=== PATIENT | female | born 1965 | race Caucasian/White ===

== ENCOUNTER 2016-12-21 19:56 | Emergency (ER) | payer SELFPAY ==
[2016-12-21 20:03] VITALS: BP 160/89
--- NOTE | 2016-12-21 20:08 | ER Document Report ---
ED Medical Screen (RME) - General Stated Complaint: POSSIBLE SINUS INFECTION Mode of Arrival: Ambulatory Information source: Patient Notes: Patient complains of sinus congestion for the past week. Patient reports sinus tenderness. Patient reports temperature of 101 at home. hx: Sciatica I have greeted and performed a rapid initial assessment of this patient. A comprehensive ED assessment and evaluation of the patient, analysis of test results and completion of the medical decision making process will be conducted by additional ED providers. - Related Data Allergies/Adverse Reactions: aspirin [Aspirin] Allergy (Intermediate, Verified 04/27/14 16:11) Hives erythromycin base [Erythromycin Base] Allergy (Unknown, Verified 05/03/13 01:08) Penicillins Allergy (Unknown, Verified 05/03/13 01:08) Past Medical History - Past Medical History Cardiac Medical History: Reports: Hx Hypertension - no meds Past Surgical History: Reports: Hx Adenoidectomy, Hx Appendectomy, Hx Breast Surgery, Hx Cardiac Surgery, Hx Section, Hx Gynecologic Surgery, Hx Hysterectomy - Immunizations Immunizations up to date: Yes Hx Diphtheria, Pertussis, Tetanus Vaccination: Yes Physical Exam - Vital signs Vitals: Temp Pulse Resp BP Pulse Ox 98.3 F 110 H 18 160/89 H 97 12/21/16 20:02 12/21/16 20:02 12/21/16 20:02 12/21/16 20:02 12/21/16 20:02 - General Notes: Patient with maxillary sinus tenderness Course - Vital Signs Vital signs: Temp Pulse Resp BP Pulse Ox 98.3 F 110 H 18 160/89 H 97 12/21/16 20:02 12/21/16 20:02 12/21/16 20:02 12/21/16 20:02 12/21/16 20:02
== END 2016-12-21 21:00 | disposition left against medical advice (07) ==
LOC: ER 19:56
DX: R09.81 Nasal congestion (principal); R50.9 Fever, unspecified; I10 Essential (primary) hypertension; Z88.6 Allergy status to analgesic agent; Z88.3 Allergy status to other anti-infective agents; Z88.0 Allergy status to penicillin; Z90.710 Acquired absence of both cervix and uterus
CPT/HCPCS: 99281

== ENCOUNTER 2020-05-02 23:18 | Emergency (ER) | payer SELFPAY ==
[2020-05-03] LABS: HEMOGLOBIN 14.7 g/dL (12.0-15.5); MEAN CORPUSCULAR HEMOGLOBIN 32.8 pg (27.0-33.4); MEAN CORPUSCULAR HGB CONC 33.4 g/dL (32.0-36.0); MEAN CORPUSCULAR VOLUME 98 fl (80-97); PLATELET COUNT 351 10^3/uL (150-450); RED BLOOD COUNT 4.47 10^6/uL (3.72-5.28); WHITE BLOOD COUNT 23.1 10^3/uL (4.0-10.5)
[2020-05-03 00:08] LABS: ALBUMIN 4.2 g/dL (3.5-5.0); ALKALINE PHOSPHATASE 79 U/L (38-126); ANION GAP 7 (5-19); ASPARTATE AMINO TRANSFERASE 30 U/L (14-36); BILIRUBIN,TOTAL 0.8 mg/dL (0.2-1.3); BLOOD UREA NITROGEN 7 mg/dL (7-20); CALCIUM 9.6 mg/dL (8.4-10.2); CARBON DIOXIDE 24 mmol/L (22-30); CHLORIDE 107 mmol/L (98-107); GLUCOSE 190 mg/dL (75-110); POTASSIUM 3.5 mmol/L (3.6-5.0); TOTAL PROTEIN 7.1 g/dL (6.3-8.2)
[2020-05-03 00:09] LABS: ACETAMINOPHEN < 10 ug/mL (10-30); ALCOHOL < 10 mg/dL (NONE DETECTED); SALICYLATE < 1.0 mg/dL (2.0-20.0)
[2020-05-03 00:16] LABS: ABSOLUTE LYMPHOCYTES# (MANUAL) 1.4 10^3/uL (0.5-4.7); ABSOLUTE MONOCYTES # (MANUAL) 1.8 10^3/uL (0.1-1.4); BAND NEUTROPHILS % (MANUAL) 3 % (3-5); BASOPHILS % (MANUAL) 0 % (0-2); EOSINOPHILS % (MANUAL) 0 % (0-6); LYMPHOCYTES % (MANUAL) 6 % (13-45); MONOCYTES % (MANUAL) 8 % (3-13); SEGMENTED NEUTROPHILS % (MAN) 83 % (42-78); TOTAL CELLS COUNTED 100
[2020-05-03 00:17] LABS: PLATELET COMMENT ADEQUATE; RBC MORPHOLOGY COMMENT NORMO-CYTIC/CHROMIC
[2020-05-03] MEDS ORDERED: ONDANSETRON HCL INJ/PF 4 MG/2 ML SDV IV ONE (00:49)
[2020-05-03] MEDS ORDERED: NORMAL SALINE 1000 ML 1,000 ML IV ONE (00:49)
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
[2020-05-03 02:38] LABS: APPEARANCE,URINE SLIGHTLY-CLOUDY; BILIRUBIN,URINE NEGATIVE (NEGATIVE); COLOR,URINE YELLOW; GLUCOSE, URINE 50 mg/dL (NEGATIVE); KETONES,URINE NEGATIVE (NEGATIVE); LEUKOCYTE ESTERASE,URINE NEGATIVE (NEGATIVE); NITRITE,URINE NEGATIVE (NEGATIVE); PROTEIN,URINE 100 mg/dL (NEGATIVE); URINE SPECIFIC GRAVITY 1.009; UROBILINOGEN,URINE NEGATIVE mg/dL (<2.0)
--- NOTE | 2020-05-03 02:49 | RADIOLOGY REPORT (SQ) ---
EXAM DESCRIPTION: XR CHEST 1 VIEW COMPLETED DATE/TME: 05/03/2020 02:14 CLINICAL HISTORY: 54 years Female, overdosed, apnea episode, leukocytosis COMPARISON: None. NUMBER OF VIEWS/TECHNIQUE: 1/AP FINDINGS: Increased lung volume, clear parenchyma, normal cardiac silhouette, and intact bony thorax. IMPRESSION: No acute cardiopulmonary findings.
[2020-05-03 03:04] LABS: URINE AMPHETAMINES SCREEN NEGATIVE; URINE BARBITURATES SCREEN NEGATIVE; URINE BENZODIAZEPINES SCREEN NEGATIVE; URINE COCAINE SCREEN NEGATIVE; URINE METHADONE SCREEN NEGATIVE; URINE PHENCYCLIDINE SCREEN NEGATIVE
[2020-05-03 03:06] LABS: URINE MARIJUANA (THC) SCREEN UNCONFIRMED POSITIVE
[2020-05-03] MEDS ORDERED: NICOTINE 14 MG/24 HR PATCH.TD24 TD ONE (04:26)
[2020-05-03] MEDS ORDERED: KETOROLAC TROMETHAMINE INJ/PF 30 MG/1 ML SDV IV ONE (04:26)
[2020-05-03 04:38] VITALS: BP 119/64
--- NOTE | 2020-05-03 11:36 | EKG REPORT ---
SEVERITY:- ABNORMAL ECG - SINUS RHYTHM BIATRIAL ABNORMALITIES PROBABLE LEFT VENTRICULAR HYPERTROPHY : Confirmed by: Doug Tong MD 03-May-2020 11:36:23
== END 2020-05-03 04:58 | disposition other institution (70) ==
LOC: ER 23:18
DX: T50.991A Poisoning by other drugs, medicaments and biological substances, accidental (unintentional), initial encounter (principal); F11.20 Opioid dependence, uncomplicated; M54.9 Dorsalgia, unspecified; G89.29 Other chronic pain; F12.10 Cannabis abuse, uncomplicated; D72.829 Elevated white blood cell count, unspecified; R53.83 Other fatigue; Z88.0 Allergy status to penicillin; Z88.1 Allergy status to other antibiotic agents; Z88.8 Allergy status to other drugs, medicaments and biological substances; F17.200 Nicotine dependence, unspecified, uncomplicated; I10 Essential (primary) hypertension; Z79.899 Other long term (current) drug therapy
CPT/HCPCS: 93005; 99284; 96361; 96374; 96375; 36415; 80307 ×4; 85025; 80053; 81001; 71045; 93010; J1885; J2405; J7030

== ENCOUNTER → 2020-07-29 | Outpatient (CLI) | payer OTHER ==
[2020-07-29 13:14] LABS: ABSOLUTE BASOPHILS # (AUTO) 0.1 10^3/uL (0.0-0.2); ABSOLUTE EOSINOPHILS # (AUTO) 0.1 10^3/uL (0.0-0.6); ABSOLUTE LYMPHOCYTES (AUTO) 2.7 10^3/uL (0.5-4.7); ABSOLUTE MONOCYTES (AUTO) 0.7 10^3/uL (0.1-1.4); ABSOLUTE NEUT (AUTO) 5.4 10^3/uL (1.7-8.2); BASOPHILS % (AUTO) 1.1 % (0-2); EOSINOPHILS % (AUTO) 0.6 % (0-6); HEMATOCRIT 40.8 % (36.0-47.0); HEMOGLOBIN 14.3 g/dL (12.0-15.5); LYMPHOCYTES % (AUTO) 30.2 % (13-45); MEAN CORPUSCULAR HEMOGLOBIN 33.5 pg (27.0-33.4); MEAN CORPUSCULAR HGB CONC 35.1 g/dL (32.0-36.0); MEAN CORPUSCULAR VOLUME 96 fl (80-97); MONOCYTES % (AUTO) 8.3 % (3-13); PLATELET COUNT 322 10^3/uL (150-450); RED BLOOD COUNT 4.28 10^6/uL (3.72-5.28); RED CELL DISTRIBUTION WIDTH 13.7 % (11.5-14.0); SEGMENTED NEUTROPHILS % (AUTO) 59.8 % (42-78); TOTAL CELLS COUNTED % (AUTO) 100 %
[2020-07-29 13:20] LABS: ALBUMIN 4.6 g/dL (3.5-5.0); ALKALINE PHOSPHATASE 86 U/L (38-126); ANION GAP 8 (5-19); ASPARTATE AMINO TRANSFERASE 27 U/L (14-36); BILIRUBIN,DIRECT 0.4 mg/dL (0.0-0.4); BILIRUBIN,TOTAL 1.1 mg/dL (0.2-1.3); BLOOD UREA NITROGEN 11 mg/dL (7-20); CALCIUM 9.6 mg/dL (8.4-10.2); CARBON DIOXIDE 26 mmol/L (22-30); CHLORIDE 105 mmol/L (98-107); GLUCOSE 94 mg/dL (75-110); POTASSIUM 4.5 mmol/L (3.6-5.0); TOTAL PROTEIN 7.2 g/dL (6.3-8.2); URIC ACID 4.6 mg/dL (2.5-7.5)
[2020-07-30 11:02] LABS: CHOLESTEROL 216.39 mg/dL (0-200); TRIGLYCERIDES 82 mg/dL (<150)
[2020-07-30 11:14] LABS: DIRECT LDL 127 mg/dL (<100)
--- NOTE | 2020-07-30 19:14 | EKG REPORT ---
SEVERITY:- ABNORMAL ECG - SINUS RHYTHM BIATRIAL ABNORMALITIES : Confirmed by: Teresa Garza 30-Jul-2020 19:12:56
== END ==
LOC: CCC 11:48
PROVIDERS: ATTEND Family Medicine
DX: N95.9 Unspecified menopausal and perimenopausal disorder (principal); I10 Essential (primary) hypertension
CPT/HCPCS: 36415; 80053; 80061; 83001; 83036; 84443; 84550; 85025